=== PATIENT | female | born 1990 | race African-American/Black ===

== ENCOUNTER 2025-08-11 15:31 | Emergency (ER) | payer MEDICAID ==
[~2025-08-11] VITALS: Ht 167.6 cm; Wt 86.0 kg
[2025-08-11 15:35] VITALS: BP 182/108; PULSE 86; RESP 16; TEMP 98.6; O2SAT 98
== END 2025-08-11 19:54 | disposition home or self-care (01) ==
LOC: ER 15:31
DX: Z48.00 Encounter for change or removal of nonsurgical wound dressing (principal); Z88.1 Allergy status to other antibiotic agents
CPT/HCPCS: 99283